=== PATIENT | female | born 1945 | race Caucasian/White ===

== ENCOUNTER 2018-11-10 10:23 | Emergency (ER) | payer SELFPAY ==
[2018-11-10 11:23] LABS: ADD MAN DIFF? NO
[2018-11-10 11:30] LABS: BASOPHILS % 0.3 % (0.0-2.0); EOSINOPHILS # 0.1 10^3/ul (0.0-0.5); EOSINOPHILS % 0.5 % (0.0-7.0); HEMATOCRIT 38.3 % (37.0-47.0); HEMOGLOBIN 11.9 g/dl (12.0-16.0); LYMPHOCYTES # 2.2 10^3/ul (0.8-2.9); LYMPHOCYTES % 24.4 % (15.0-51.0); MEAN CORPUSCULAR HGB CONC 31.1 g/dl (32.0-37.0); MEAN CORPUSCULAR VOLUME 83.6 fl (82.0-101.0); MEAN PLATELET VOLUME 10.2 fl (7.4-10.4); MONOCYTE # 0.6 10^3/ul (0.3-0.9); NEUTROPHIL # 6.2 10^3/ul (1.6-7.5); NEUTROPHILS % 67.5 % (39.0-77.0); PLATELET COUNT 324 10^3/UL (140-415); RED BLOOD COUNT 4.58 10^6/ul (4.20-5.40); RED CELL DISTRIBUTION WIDTH 13.7 % (11.5-14.5)
[2018-11-10 11:30] LABS: WHITE BLOOD COUNT 9.1 10^3/ul (4.8-10.8)
[2018-11-10 11:44] LABS: INR 0.93; PROTIME 12.6 Sec (11.9-14.9)
[2018-11-10 11:45] LABS: URIC ACID 4.3 mg/dl (3.1-7.9)
[2018-11-10 11:45] LABS: PARTIAL THROMBOPLASTIN TIME 29.3 Sec (23.0-35.0)
[2018-11-10 11:47] LABS: ALANINE AMINOTRANSFERASE 26 IU/L (13-69); ALBUMIN/GLOBULIN RATIO 1.25; ALKALINE PHOSPHATASE 87 IU/L (42-121); ANION GAP 9 (5-13); ASPARTATE AMINO TRANSFERASE 21 IU/L (15-46); BILIRUBIN,INDIRECT 0.5 mg/dl (0-1.1); BILIRUBIN,TOTAL 0.5 mg/dl (0.2-1.3); BLOOD UREA NITROGEN 10 mg/dl (7-20); CALCIUM 9.3 mg/dl (8.4-10.2); CARBON DIOXIDE 29 mmol/L (21-31); CHLORIDE 104 mmol/L (97-110); CREATINE KINASE 65 IU/L (23-200); CREATININE 0.67 mg/dl (0.44-1.00); GLUCOSE 115 mg/dl (70-220); POTASSIUM 4.2 mmol/L (3.5-5.1); SODIUM 142 mmol/L (135-144); TOTAL PROTEIN 7.2 g/dl (6.1-8.1)
[2018-11-10 11:58] LABS: B-TYPE NATRIURETIC PEPTIDE 325 PG/ML (0-125); CK INDEX 1.4; CK-MB 0.93 ng/ml (0.0-2.4); TROPONIN-I < 0.012 ng/ml (0.000-0.120)
[2018-11-10 12:13] LABS: D-DIMER 2483.18 ng/ml (<460)
[2018-11-10] MEDS: SOD CHLORIDE 0.9% 100 ML (14:26)
[2018-11-10] MEDS: IOHEXOL 100 ML (14:26)
[2018-11-10] MEDS: morphine 2 MG INJ IV (15:15)
[2018-11-10] MEDS: ONDANSETRON 4 MG INJ IV (15:16)
== END 2018-11-10 15:20 | disposition home or self-care (01) ==
LOC: E/R 10:23
DX: M79.671 Pain in right foot (principal); I10 Essential (primary) hypertension
CPT/HCPCS: 71045; 71275; 73630; 80053; 82550; 82553; 83880; 84484; 84560; 85025; 85378; 85610; 85730; 93005; 93923; 93970; 99285-25